=== PATIENT | female | born 1985 | race Caucasian/White ===

== ENCOUNTER 2022-10-25 02:14 | Emergency (ER) | payer BC, SELFPAY ==
[2022-10-25 02:15] VITALS: BP 132/79; PULSE 116; RESP 21; TEMP 36.6; O2SAT 92; BMI 22.7
--- NOTE | 2022-10-25 02:23 | W.ED.OVERDOS ---
HPI - Overdose General: Chief Complaint: Overdose Stated Complaint: fentanyl OD Time Seen by Provider: 10/25/22 02:16 Source: patient History of Present Illness: 37-year-old female presenting with fentanyl overdose. She injected the same amount she injected last night she says. She has had 4 beers that she admits to. She was found unresponsive by law enforcement. She was given Narcan both intramuscularly and intranasally. By the time EMS arrival, the patient was awake and talking. She presents to the ER, awake, talking, and oriented. MD complaint: accidental overdose Onset (ago): unknown Timing confirmed by: other Intent: other Context: Intentional Overdose: other Context: Accidental Overdose: wanted to get high Treatments Prior to Arrival: oxygen and narcan Review of Systems Const: Denies: fever(s) ENMT: Denies: throat pain Card: Denies: chest pain Resp: Denies: dyspnea GI: Reports: nausea; Denies: abdominal pain or vomiting Physical Exam Const: COMMON NORMALS: no acute distress GENERAL APPEARANCE: cooperative NUTRITIONAL APPEARANCE: thin HENMT: COMMON NORMALS: normocephalic, atraumatic and Normal external nose present HEAD & SCALP: normocephalic and atraumatic FACE & SINUS: normal facial exam and face symmetric NOSE: Normal external nose present Eye: COMMON NORMALS: Equal, round and reactive pupils present and EOMs intact bilaterally PUPIL: Yes Equal, round and reactive pupils present Neck/C-Spine: GENERAL: Yes trachea midline Chest: CHEST: Yes Symmetrical chest wall rise Resp: COMMON NORMALS: normal respiratory effort, No use of accessory muscles and clear to auscultation bilaterally AUSCULTATION: clear to auscultation bilaterally Cardio: COMMON NORMALS: regular rhythm RATE: tachycardic RHYTHM: regular rhythm GI: COMMON NORMALS: Normal to inspection, nondistended, normoactive bowel sounds present and non-tender Extremity: COMMON NORMALS: no pedal edema Neuro: KAIDEN COMA SCALE: document GCS findings [place] coma scale eye opening: Spontaneous [place] coma scale verbal response: Orientated [place] coma scale motor response: Obey commands [place] coma scale total score: 15 Psych: ACTIVITY/MOTOR BEHAVIOR: Yes psychomotor agitation, Yes fidgeting and Yes restless SPEECH: Yes minimal THOUGHT CONTENT: No Suicidality present and No Homicidality present Skin: COMMON NORMALS: no jaundice Course Vital Signs: Vital signs: Vital Signs Temperature 98 F 10/25/22 02:15 Pulse Rate 92 10/25/22 03:00 Respiratory Rate 16 10/25/22 03:00 Blood Pressure 142/85 10/25/22 03:00 Pulse Oximetry 99 10/25/22 03:00 Oxygen Delivery Me thod 10/25/22 02:15 MDM - Overdose Medical Decision Making Patient's vital signs of remained stable. She remains alert and oriented. This is well after administration of Narcan. Laboratory is not remarkable. Ethanol level is less than 10. She will be allowed discharge home. This was an accidental overdose. is with her, and notes that they have Narcan at home. Lab Data 10/25/22 02:20 10/25/22 02:20 Laboratory Results WBC 5.5 10^3/uL (4.0-10.0) 10/25/22 02:20 RBC 4.63 10^6/uL (4.1-5.3) 10/25/22 02:20 Hgb 13.2 g/dL (11.5-15.3) 10/25/22 02:20 Hct 39.3 % (37.0-47.0) 10/25/22 02:20 MCV 84.9 fl (81-99) 10/25/22 02:20 MCH 28.5 pg (28.0-34.0) 10/25/22 02:20 MCHC 33.6 g/dL (30.0-36.0) 10/25/22 02:20 RDW 12.9 % (12.1-15.1) 10/25/22 02:20 Plt Count 300 10^3/cmm (130-400) 10/25/22 02:20 MPV 9.1 fL (7.4-10.4) 10/25/22 02:20 Neut % (Auto) 38.9 % 10/25/22 02:20 Lymph % (Auto) 49.7 % 10/25/22 02:20 [place] % (Auto) 9.1 % 10/25/22 02:20 Eos % (Auto) 1.5 % 10/25/22 02:20 Baso % (Auto) 0.4 % 10/25/22 02:20 Neut # (Auto) 2.15 10^3/uL (1.8-7.7) 10/25/22 02:20 Lymph # (Auto) 2.7 10^3/uL (0.8-4.8) 10/25/22 02:20 [place] # (Auto) 0.5 10^3/uL (0.2-0.9) 10/25/22 02:20 Eos # (Auto) 0.1 10^3/uL (0.0-0.8) 10/25/22 02:20 Baso # (Auto) 0.0 10^3/uL (0.0-0.1) 10/25/22 02:20 Nucleated RBC % (auto) 0 % 10/25/22 02:20 Nucleated RBCs # 0.0 /100WBC 10/25/22 02:20 Sodium 141 mmol/L (136-145) 10/25/22 02:20 Potassium 3.1 mmol/L (3.5-5.1) L 10/25/22 02:20 Chloride 102 mmol/L (98-107) 10/25/22 02:20 Carbon Dioxide 25 mmol/L (22-29) 10/25/22 02:20 Anion Gap 17.1 (5-19) 10/25/22 02:20 BUN 6 mg/dL (6-20) 10/25/22 02:20 Creatinine 0.8 mg/dL (0.5-0.9) 10/25/22 02:20 GFR Calculation 81.6 mL/min (90-130) L 10/25/22 02:20 Glucose 185 mg/dL (65-115) H 10/25/22 02:20 Calculated Osmolality 294 mOsm/kg (285-295) 10/25/22 02:20 Calcium 9.0 mg/dL (8.5-10.5) 10/25/22 02:20 Total Bilirubin 0.2 mg/dL (0.15-1.2) 10/25/22 02:20 AST 32 U/L (0-32) 10/25/22 02:20 ALT 29 U/L (0-33) 10/25/22 02:20 Alkaline Phosphatase 76 U/L (35-105) 10/25/22 02:20 Creatine Kinase 273 U/L (26-192) H 10/25/22 02:20 Total Protein 7.3 g/dL (6.6-8.7) 10/25/22 02:20 Albumin 4.2 g/dL (3.5-5.2) 10/25/22 02:20 Globulin 3.1 g/dL (1.3-4.6) 10/25/22 02:20 HCG, Qual Negative (Negative) 10/25/22 02:20 Ethyl Alcohol < 10 mg/dL (0-10) 10/25/22 02:20 Discharge Plan Discharge Patient Disposition: Home Clinical Impression: Poisoning by opiate or related narcotic Condition: Stable Discharge Orders: Discharge ED (Routine); Ordered 10/25/22 Ordered By: Payam Cunningham Patient Instructions: Prescription Opioid Overdose (ED), Opioid Safety, Pain Management Coding Level of Care Code ED Physician General Internal Medicine for [place] Pace
[2022-10-25] MEDS: sodium chloride 0.9% 1,000 ML 999 ML IV (02:31)
[2022-10-25 02:41] LABS: Basophils % 0.4 %; Eosinophils # 0.1 10^3/uL (0.0-0.8); Eosinophils % 1.5 %; Hematocrit 39.3 % (37.0-47.0); Hemoglobin 13.2 g/dL (11.5-15.3); Lymphocytes # 2.7 10^3/uL (0.8-4.8); Lymphocytes % 49.7 %; Mean Corpuscular HGB Conc 33.6 g/dL (30.0-36.0); Mean Corpuscular Hemoglobin 28.5 pg (28.0-34.0); Mean Corpuscular Volume 84.9 fl (81-99); Mean Platelet Volume 9.1 fL (7.4-10.4); Monocytes # 0.5 10^3/uL (0.2-0.9); Monocytes % 9.1 %; Neutrophils # 2.15 10^3/uL (1.8-7.7); Neutrophils % 38.9 %; Nucleated Red Blood Cells % 0 %; Platelet Count 300 10^3/cmm (130-400); Red Blood Count 4.63 10^6/uL (4.1-5.3); Red Cell Distribution Width 12.9 % (12.1-15.1); White Blood Count 5.5 10^3/uL (4.0-10.0)
[2022-10-25 02:53] LABS: Alanine Aminotransferase 29 U/L (0-33); Albumin Level 4.2 g/dL (3.5-5.2); Alkaline Phosphatase 76 U/L (35-105); Anion Gap 17.1 (5-19); Aspartate Amino Transferase 32 U/L (0-32); Blood Urea Nitrogen 6 mg/dL (6-20); Carbon Dioxide 25 mmol/L (22-29); Chloride 102 mmol/L (98-107); Creatine Phosphokinase 273 U/L (26-192); Globulin 3.1 g/dL (1.3-4.6); Glomerular Filtration Rate 81.6 mL/min (90-130); Glucose 185 mg/dL (65-115); Osmolality Calculated 294 mOsm/kg (285-295); Potassium 3.1 mmol/L (3.5-5.1); Sodium 141 mmol/L (136-145); Total Bilirubin 0.2 mg/dL (0.15-1.2); Total Protein 7.3 g/dL (6.6-8.7)
[2022-10-25 03:00] VITALS: BP 142/85; PULSE 92; RESP 16; O2SAT 99
[2022-10-25 03:17] LABS: HCG, Serum Qual Negative (Negative)
[2022-10-25 03:25] LABS: Alcohol Level < 10 mg/dL (0-10)
--- NOTE | 2022-10-30 14:25 | DCPLANNER ---
textile conversion manager called patient due to no primary care physician - patient stated that she sees a primary care in [facility].
== END 2022-10-25 03:47 | disposition home or self-care (01) ==
PROVIDERS: Emergency Provider Emergency Medicine
DX: T40.411A Poisoning by fentanyl or fentanyl analogs, accidental (unintentional), initial encounter (principal)
CPT/HCPCS: 80053; 80307; 82550; 84703; 85025; 99284; J7030